=== PATIENT | male | born 1955 | race Asian ===

== ENCOUNTER 2017-12-15 11:16 | Outpatient (CLI) | payer BC ==
--- NOTE | 2017-12-15 13:10 | RAD ---
PA AND LATERAL CHEST: INDICATIONS: History of dyspnea. COMPARISON: 11/10/2016 FINDINGS: There is moderate to prominent COPD change. This is stable. heart size is normal appearing. There is mild spondylosis of the thoracic spine. IMPRESSION: Stable chronic obstructive pulmonary disease change when compared to prior, dated 11/10/2016. POS: [facility]
== END 2017-12-15 11:17 | disposition home or self-care (01) ==
LOC: RAD 11:16
PROVIDERS: ATTEND Internal Medicine Critical Care Medicine
DX: R06.00 Dyspnea, unspecified (principal)
CPT/HCPCS: 71046

== ENCOUNTER 2018-06-27 13:45 | Outpatient (CLI) | payer BC ==
--- NOTE | 2018-06-27 15:07 | MRI ---
FExam: Brain MRI without contrast HISTORY: Acute muscle stiffness in the neck. Headache. COMPARISON: None FINDINGS: Calvarial marrow signal intensity: Appropriate T1 signal Gradient echo sequence: No hemorrhage Brain parenchyma: No mass, mass effect or midline shift. Brain volume, age-appropriate. Cortical ruano-white matter differentiation: Preserved Restricted diffusion: Central arterial flow voids are maintained. Absent restricted diffusion White matter signal intensities: T12 FLAIR white matter hyperintensities due to chronic small vessel ischemic changes Sinuses: Mild mucosal disease of paranasal sinuses. Adequate mastoid air cell aeration IMPRESSION: Absence of restricted diffusion. No acute infarct.
--- NOTE | 2018-06-27 16:05 | MRI ---
MRI SOFT TISSUE NECK: History: Neck stiffness. Technique: Multiplanar, multisequence noncontrast enhanced MRI images were obtained of the soft tissu e neck. FINDINGS: Contrast was not ordered per order of Dr. Rafael Harper's nurse. The parotid glands are unremarkable. The submandibular glands are unremarkable. No definite evidence of soft tissue neck mass is seen. The spinal cord is not significantly compressed. If there is concer n for cervical spine pathology, correlation with MRI cervical spine may be of use. There is minimal bilateral maxillary sinus mucosal thickening. No definite evidence of muscle asymmetry is seen. IMPRESSION: Limited exam as IV contrast was not given. No definite evidence of soft tissue neck abnormality seen on this study. POS: [facility]
== END 2018-06-27 13:46 | disposition home or self-care (01) ==
LOC: SCSMRI 13:45
PROVIDERS: ATTEND Family Medicine
DX: R51 Headache (principal); M43.6 Torticollis
CPT/HCPCS: 70540; 70551

== ENCOUNTER 2018-08-05 11:24 | Outpatient (CLI) | payer BC ==
--- NOTE | 2018-08-05 11:53 | ULT ---
BILATERAL CAROTID DUPLEX ULTRASOUND: DATE: 08/05/18 HISTORY: Cluster headaches. TECHNIQUE: Solis scale ultrasound with color flow and spectral Doppler imaging of the extracranial carotid artery systems performed bilaterally. FINDINGS: No plaque or significant intimal wall thickening seen on either side. The peak systolic velocity in the right ICA measures 84 cm/second with an end-diastolic velocity of 3 4 cm/second and a systolic ratio of 0.99. The peak systolic velocity in the left ICA measures 57 cm/second with an end-diastolic velocity of 23 cm/second and a systolic ratio of 0.63. Flow in both vertebral arteries remains antegrade. IMPRESSION: No evidence of hemodynamically significant stenosis. POS: [facility]
== END 2018-08-05 11:25 | disposition home or self-care (01) ==
LOC: SCSULT 11:24
PROVIDERS: ATTEND Psychiatry & Neurology Neurology
DX: G44.009 Cluster headache syndrome, unspecified, not intractable (principal)
CPT/HCPCS: 93880

== ENCOUNTER 2019-04-25 10:00 | Outpatient (CLI) | payer BC ==
--- NOTE | 2019-04-25 10:16 | RAD ---
EXAM: Chest 2 views: HISTORY: Dyspnea COMPARISON: 12/15/2017 FINDINGS: There is a normal-sized cardiomediastinal silhouette. There is no evidence of consolidation, mass, or pleural effusion. The bones are unremarkable. IMPRESSION: No evidence of acute cardiopulmonary disease
== END 2019-04-25 10:01 | disposition home or self-care (01) ==
LOC: RAD 10:00
PROVIDERS: ATTEND Internal Medicine Critical Care Medicine
DX: R06.00 Dyspnea, unspecified (principal)
CPT/HCPCS: 71046

== ENCOUNTER 2024-02-21 15:18 | Outpatient (CLI) | payer BC | END 2024-02-21 15:19 | disposition home or self-care (01) | LOC: SCSRAD 15:18 | PROVIDERS: ATTEND Family Medicine | DX: R05.9 Cough, unspecified (principal); M25.561 Pain in right knee | CPT/HCPCS: 71046 ==

== ENCOUNTER 2024-11-14 11:03 | Outpatient (CLI) | payer BC | END 2024-11-14 11:04 | disposition home or self-care (01) | LOC: SCSMRI 11:03 | PROVIDERS: ATTEND Family Medicine | DX: R51.9 Headache, unspecified (principal); I67.82 Cerebral ischemia; R90.82 White matter disease, unspecified; I73.9 Peripheral vascular disease, unspecified; J34.89 Other specified disorders of nose and nasal sinuses | CPT/HCPCS: 70551 ==